=== PATIENT | male | born 1960 | race American Indian/Alaskan Native ===

== ENCOUNTER 2017-09-04 11:39 | Outpatient (CLI) | payer OTHER ==
--- NOTE | 2017-09-04 12:17 | XRay Report ---
RIGHT KNEE, 2 views: History: Pain. The bony architecture is intact without evidence of fracture or dislocation. No significant soft tissue abnormality is seen. IMPRESSION: Right knee within normal limits.
--- NOTE | 2017-09-04 12:17 | XRay Report ---
RIGHT HIP, 2 views: History: Pain. The bony architecture is intact without evidence of fracture or dislocation. Minimal osteoarthritic changes are suspected. No evidence for fracture, bone lesion or osteonecrosis. No significant soft tissue abnormality is seen. IMPRESSION: Minimal osteoarthritis.
== END 2017-09-04 11:40 | disposition home or self-care (01) ==
LOC: XRAY 11:39
PROVIDERS: ATTEND Internal Medicine
DX: M16.11 Unilateral primary osteoarthritis, right hip (principal); M25.561 Pain in right knee